=== PATIENT | male | born 1950 | race Caucasian/White ===

== ENCOUNTER 2024-09-18 11:49 | Emergency (ER) | payer MEDICARE ==
[~2024-09-18] VITALS: Ht 182.9 cm; Wt 77.7 kg
[2024-09-18] MEDS ORDERED: PANT40TA29 PO (12:15)
[2024-09-18] MEDS ORDERED: AMLO25TA PO (12:15)
[2024-09-18] MEDS ORDERED: CARV3.12 PO (12:15)
[2024-09-18] MEDS ORDERED: ECOT81TA5 PO (12:15)
[2024-09-18] MEDS ORDERED: CLONI1TA PO (12:15)
[2024-09-18] MEDS ORDERED: LIDO30CR18 TOP (12:15)
[2024-09-18 12:47] LABS: BASO # 0.1 10^3/uL (0.0-0.2); BASO % 0.8 % (0.0-1.0); EOS # 0.4 10^3/uL (0.0-0.5); EOS % 5.4 % (0.0-3.0); LYMPH # 2.0 10^3/uL (1.5-5.0); LYMPH % 28.0 % (24.0-44.0); MONO # 0.6 10^3/uL (0.0-0.8); MONO % 8.8 % (2.0-8.0); NEUTROPHILS # 4.1 10^3/uL (1.5-8.5); NEUTROPHILS % 56.7 % (36.0-66.0); PLATELET COUNT, AUTOMATED 231 10^3/uL (150-450)
[2024-09-18 13:13] LABS: ALT/SGPT 21.0 U/L (7.0-40); AST/SGOT 24.0 U/L (<34)
[2024-09-18 13:50] LABS: APPEARANCE, URINE CLEAR (CLEAR); BACTERIA, URINE AUTO NEGATIVE (NEGATIVE); BILIRUBIN, URINE AUTO NEGATIVE (NEGATIVE); BLOOD, URINE BLOOD NEGATIVE (NEGATIVE); GLUCOSE, URINE (UA) AUTO NEGATIVE (NEGATIVE); KETONE, URINE AUTO NEGATIVE (NEGATIVE); LEUKOCYTE ESTERASE, URINE AUTO NEGATIVE (NEGATIVE); NITRITE, URINE AUTO NEGATIVE (NEGATIVE); PROTEIN, URINE AUTO NEGATIVE (NEGATIVE); RBC, URINE AUTO 0 /HPF (0-3); SPECIFIC GRAVITY URINE AUTO 1.003 (1.002-1.035); SQUAMOUS EPITHELIAL CELL UR AU 0 /HPF (0-6); UROBILINOGEN, URINE AUTO 0.2 mg/dL (0.0-2.0); WBC, URINE AUTO 0 /HPF (0-3)
[2024-09-18 15:19] LABS: CPK CREATINE PHOSPHOKINASE 85.0 U/L (46-171)
[2024-09-18] MEDS ORDERED: ISOVUE-370 76% 100 ML VIAL As Ordered ONE (15:34)
[2024-09-18 16:06] LABS: CALCIUM LEVEL 9.2 MG/DL (8.3-10.6); CARBON DIOXIDE LEVEL 28.0 MMOL/L (20-31); CHLORIDE LEVEL 103.0 MMOL/L (98-107); CK-MB VALUE MASS 2.7 NG/ML (<3.6); CREATININE FOR GFR 0.96 MG/DL (0.70-1.30); GLOMERULAR FILTRATION RATE 81.9 (>42); MAGNESIUM LEVEL 2.0 MG/DL (1.8-2.4); MB/CK RELATIVE INDEX 3.17 (< OR =4); POTASSIUM SERUM 4.2 MMOL/L (3.5-5.1); SODIUM LEVEL 143.0 MMOL/L (136-145)
[2024-09-18 17:43] VITALS: BP 170/100; TEMP 98.3; O2SAT 98
== END 2024-09-18 17:59 | disposition home or self-care (01) ==
LOC: M ED 11:49
DX: I10 Essential (primary) hypertension (principal); R53.81 Other malaise; I25.2 Old myocardial infarction; K21.9 Gastro-esophageal reflux disease without esophagitis; F10.10 Alcohol abuse, uncomplicated; Z88.2 Allergy status to sulfonamides; Z79.1 Long term (current) use of non-steroidal anti-inflammatories (NSAID); Z79.899 Other long term (current) drug therapy
CPT/HCPCS: 36415; 70450; 71045; 71275; 74174; 80047; 80048; 80076; 81001; 82550; 82553; 83735; 84484; 85025; 87486; 87581; 87633; 87798; 93005; 99285; Q9967